=== PATIENT | male | born 1995 | race Caucasian/White ===

== ENCOUNTER 2016-09-23 14:17 | Emergency (ER) | payer SELFPAY ==
[2016-09-23 14:32] VITALS: BP 128/74; PULSE 78; RESP 16; TEMP 97.2; O2SAT 96
--- NOTE | 2016-09-23 14:35 | EDPHY ---
H & P HPI/ROS: Chief Complaint: Finger laceration HPI: 21-year-old male who lacerated the ulnar aspect of his left 5th digit with a circular saw. Patient was trimming a board when the saw blade just cut into the ulnar aspect of his 5th finger. Happened just prior to arrival. He is 21 years old and graduate from high school so his tetanus is up-to-date. No numbness or weakness. No prior injuries. ROS: 10 point Review of Systems is negative except as noted in the HPI. PMH: None Medications none Allergies: No known drug allergies Social History: No smoking, occasional alcohol, no recreational drug use Family History: non-contributory Physical Exam: General: Awake, alert, no acute distress Left hand: He has a deep laceration on the ulnar aspect of his left 5th finger for approximately 3 cm from the middle portion of his middle phalanx extending past the the IP to the lateral aspect of his distal phalanx. He has sensation intact laterally and medially and dorsally. He has normal flexion and extension strength. Cap refills less than 2 seconds. No other injuries. Skin: No rash Constitutional: Initial Vital Signs Temperature (C) 36.2 C 09/23/16 14:27 Heart Rate 78 09/23/16 14:27 Respiratory Rate 16 09/23/16 14:27 Blood Pressure 128/74 H 09/23/16 14:27 O2 Sat (%) 96 09/23/16 14:27 O2 Delivery Mode Room Air Allergies/Adverse Reactions: No Known Allergies Allergy (Unverified 09/23/16 14:27) Home Medications: Medication Instructions Recorded NK [No Known Home Meds] 09/23/16 Medical Decision Making Procedures: Procedure: Digital nerve block, indication is digit anesthesia for procedure. Patient was prepped with chlorhexidine Skin prep. 0.5% bupivacaine was infiltrated in the medial in lateral aspects for with a dorsal approach at the base of the proximal phalanx with blockage of both dorsal and volar nerves. Total of 1 mL was infiltrated. There were no complications. Procedure was performed by myself. Procedure: Laceration repair. Verbal consent was obtained from the patient. The 3 cm laceration on the left 5th finger was anesthetized with a digital nerve block. The wound was irrigated , draped and explored to its base with a gloved finger. There were no deep structures involved. No tendon injury was identified. The wound was repaired with 8, 5-0 Ethilon simple interrupted sutures. The wound repair was uncomplicated. The procedure was performed by myself. Departure - Departure Disposition: Home, Routine, Self-Care Clinical Impression: Laceration Condition: Good Instructions: Finger Laceration (ED) Additional Instructions: May wash briefly but then keep the area clean and dry. Sutures need to be removed in 14 days, he can follow up with workman's Comp her physician for this. Return for increasing redness, pus from the wound, increasing pain, or any concerns. Referrals: Work Comp Referral [facility] [Outside] - As per Instructions
== END 2016-09-23 15:01 | disposition home or self-care (01) ==
LOC: CED 14:17
PROC: 0HQGXZZ Repair Left Hand Skin, External Approach (ICD-10-PCS; principal; 2016-09-23)
DX: S61.217A Laceration without foreign body of left little finger without damage to nail, initial encounter (principal); W31.2XXA Contact with powered woodworking and forming machines, initial encounter